=== PATIENT | female | born 1965 | race Caucasian/White ===

== ENCOUNTER 2020-02-28 19:05 | Inpatient (IN) ==
[2020-02-28] MEDS ORDERED: DIPHTHERIA/TETANUS ADULT VACCINE 0.5 ML SYRINGE IM ONE (19:28)
[2020-02-28] MEDS ORDERED: LACTATED RINGERS 1,000 ML IV STA (19:28)
[2020-02-28] MEDS ORDERED: fentaNYL 100 MCG/2 ML VIAL IV STA (19:28)
[2020-02-28] MEDS ORDERED: ONDANSETRON 4 MG/2 ML VIAL IV STA (19:28)
[2020-02-28 20:19] LABS: Basophils % 0.4 % (0.0-0.8); Eosinophils # 0.3 10*3/uL (0.0-0.87); Eosinophils % 3.7 % (0.00-10.9); Immature Granulocytes % 0.6 %; Immature Granulocytes Absolute 0.04 #; Lymphocytes # 1.9 10*3/uL (1.4-4.0); Lymphocytes % 27.6 % (21.3-54.2); Mean Corpuscular HGB Conc 31.6 GM/DL (32-36); Mean Corpuscular Volume 92.9 FL (87-102); Mean Platelet Volume 10.3 FL (9.6-12.0); Monocytes % 6.9 % (1.7-12.7); Neutrophils % 60.8 % (38.7-73.9); Platelet Count 233 T/CUMM (130-400); Red Blood Count 4.09 MC/CUMM (3.8-5.5); Red Cell Distribution Width 13.2 % (9.3-17.3)
[2020-02-28 20:44] LABS: PT Patient Result 10.4 SECS (9.8-11.9); Partial Thromboplastin Time 26.5 SECS (23.9-33.8)
[2020-02-28 20:51] LABS: Alanine Aminotransferase 21 U/L (13-56); Albumin 3.8 G/DL (3.4-5.0); Alkaline Phosphatase 91 U/L (45-117); Amylase 69 U/L (25-115); Aspartate Amino Transferase 29 U/L (0-37); Bilirubin,Total < 0.39 MG/DL (0.2-1.0); Blood Urea Nitrogen 17 MG/DL (7-18); Calcium 9.2 MG/DL (8.5-10.1); Estimated Glom Filtration Rate 54 ML/MIN; Glucose 88 MG/DL (74-106); Osmolality,Calculated 273.8 MOS/KG (273-304); Total Protein 7.3 G/DL (6.4-8.3)
[2020-02-28 21:00] LABS: Bilirubin,Urine Negative (Negative); Blood, Urine Negative (Negative); Glucose,Urine (UA) Negative (Negative); Ketones,Urine Negative (Negative); Nitrite,Urine Negative (Negative); Protein,Urine Negative; RBC,Urine 1 /HPF (0-4); Squamous Epithelial Cell,Urine Occasional /HPF (0-10); Urine Appearance CLEAR (Clear); Urine Color Straw (Yellow); Urine Specific Gravity 1.019 (1.001-1.035); Urine Urobilinogen < 2.0 EU/DL (0.2-1.0); WBC,Urine 3 /HPF (0-6)
[2020-02-28] MEDS ORDERED: SODIUM BICARBONATE 50 MEQ/50 ML VIAL IV STA (21:21)
[2020-02-28] MEDS ORDERED: DEXTROSE 50% 25 GM/50 ML VIAL IV STA (21:21)
[2020-02-28] MEDS ORDERED: CALCIUM GLUCONATE 2,000 MG in SODIUM CHLORIDE 0.9% 100 ML IV ONE (21:21)
[2020-02-28] MEDS ORDERED: INSULIN REGULAR 100 UNIT/ML IV STA (21:21)
[2020-02-28] MEDS ORDERED: DEXTROSE 50% 25 GM/50 ML SYRINGE IV STA (21:26)
[2020-02-28] MEDS ORDERED: CLINDAMYCIN INJ 900 MG in PREMIX 1 EACH IV ONE (21:29)
[2020-02-28 21:53] LABS: Barbiturates Screen,Urine Negative (Negative); Benzodiazepines Screen,Urine Positive (Negative); Cannabinoid Screen,Urine Negative (Negative); Opiate Screen,Urine Negative (Negative); Phencyclidine Screen,Urine Negative (Negative)
[2020-02-28] MEDS ORDERED: TISSUE ADHESIVE 1 EACH APPLICATOR TOP ONE (22:15)
[2020-02-28] MEDS ORDERED: SUGAMMADEX 200 MG/2 ML VIAL IV ONE (23:50)
[2020-02-29] MEDS ORDERED: ONDANSETRON 4 MG/2 ML VIAL IV PRN ×2 (00:35→01:56)
[2020-02-29] MEDS ORDERED: DESFLURANE 1 UNIT/15 MINUTE INH ONE (00:36)
[2020-02-29] MEDS ORDERED: propofoL 200 MG/20 ML VIAL IV ONE (00:36)
[2020-02-29] MEDS ORDERED: LIDOCAINE 2% 5 ML VIAL ONE (00:36)
[2020-02-29] MEDS ORDERED: LACTATED RINGERS 1,000 ML IV ONE (00:37)
[2020-02-29] MEDS ORDERED: ONDANSETRON 4 MG/2 ML VIAL ONE ×2 (00:37→00:38)
[2020-02-29] MEDS ORDERED: MIDAZOLAM 2 MG/2 ML VIAL ONE (00:37)
[2020-02-29] MEDS ORDERED: KETAMINE 500 MG/10 ML VIAL ONE (00:37)
[2020-02-29] MEDS ORDERED: fentaNYL 100 MCG/2 ML VIAL ONE ×2 (00:37)
[2020-02-29] MEDS ORDERED: ROCURONIUM 100 MG/10 ML VIAL IV ONE (00:37)
[2020-02-29] MEDS ORDERED: HYDROmorphone 2 MG/1 ML VIAL ONE (00:37)
[2020-02-29] MEDS: HYDROmorphone 2 MG/1 ML VIAL IV PRN ×11 (00:40→20:34)
[2020-02-29 01:14] LABS: Calcium 9.8 MG/DL (8.5-10.1); Osmolality,Calculated 280.7 MOS/KG (273-304)
[2020-02-29] MEDS ORDERED: KETOROLAC 15 MG/1 ML VIAL IV PRN (01:56)
[2020-02-29] MEDS ORDERED: LACTATED RINGERS 1,000 ML IV SCH (01:56)
[2020-02-29] MEDS ORDERED: PROMETHAZINE 25 MG/1 ML VIAL IM PRN (01:56)
[2020-02-29 06:48] LABS: Basophils % 0.4 % (0.0-0.8); Eosinophils % 0.3 % (0.00-10.9); Hematocrit 39.3 VOL% (35.7-47.0); Hemoglobin 12.4 GM/DL (12.0-16.0); Immature Granulocytes % 0.4 %; Immature Granulocytes Absolute 0.04 #; Lymphocytes # 1.4 10*3/uL (1.4-4.0); Lymphocytes % 14.4 % (21.3-54.2); Mean Corpuscular HGB Conc 31.6 GM/DL (32-36); Mean Corpuscular Volume 93.8 FL (87-102); Mean Platelet Volume 10.5 FL (9.6-12.0); Monocytes % 8.3 % (1.7-12.7); Neutrophils % 76.2 % (38.7-73.9); Platelet Count 282 T/CUMM (130-400); Red Blood Count 4.19 MC/CUMM (3.8-5.5); Red Cell Distribution Width 13.3 % (9.3-17.3); White Blood Count 9.8 T/CUMM (4-12)
[2020-02-29 07:31] LABS: Calcium 9.3 MG/DL (8.5-10.1); Osmolality,Calculated 274.8 MOS/KG (273-304)
[2020-02-29] MEDS ORDERED: PNEUMOCOCCAL VACCINE (13 VALENT) 0.5 ML SYRINGE IM ONE (07:58)
[2020-02-29] MEDS ORDERED: INFLUENZA VIRUS VACCINE 0.5 ML SYRINGE IM ONE (08:14)
[2020-02-29] MEDS ORDERED: LURASIDONE 60 MG TABLET PO SCH (09:00)
[2020-02-29] MEDS: KETOROLAC 15 MG/1 ML VIAL IV SCH ×3 (09:14→20:33)
[2020-02-29] MEDS: BENZTROPINE 0.5 MG TABLET PO SCH (09:17)
[2020-02-29] MEDS: GABAPENTIN 400 MG CAPSULE PO SCH ×4 (09:26→20:33)
[2020-02-29] MEDS: QUEtiapine 100 MG TABLET PO SCH ×2 (09:26→20:32)
[2020-02-29] MEDS: TEMAZEPAM 15 MG CAPSULE PO SCH (20:32)
[2020-02-29] MEDS: ENOXAPARIN 40 MG/0.4 ML SYRINGE SUBCUT SCH (20:35)
[2020-03-01] MEDS: KETOROLAC 15 MG/1 ML VIAL IV SCH ×4 (02:12→22:20)
[2020-03-01 04:24] LABS: Basophils % 0.4 % (0.0-0.8); Eosinophils # 0.3 10*3/uL (0.0-0.87); Eosinophils % 3.4 % (0.00-10.9); Hematocrit 33.4 VOL% (35.7-47.0); Hemoglobin 10.6 GM/DL (12.0-16.0); Immature Granulocytes % 0.3 %; Immature Granulocytes Absolute 0.02 #; Lymphocytes % 27.2 % (21.3-54.2); Mean Corpuscular HGB Conc 31.7 GM/DL (32-36); Mean Corpuscular Volume 91.3 FL (87-102); Mean Platelet Volume 10.4 FL (9.6-12.0); Monocytes % 11.9 % (1.7-12.7); Neutrophils % 56.8 % (38.7-73.9); Platelet Count 181 T/CUMM (130-400); Red Blood Count 3.66 MC/CUMM (3.8-5.5); Red Cell Distribution Width 13.4 % (9.3-17.3); White Blood Count 7.3 T/CUMM (4-12)
[2020-03-01] MEDS: HYDROmorphone 2 MG/1 ML VIAL IV PRN ×4 (04:24→20:39)
[2020-03-01 04:43] LABS: Calcium 8.4 MG/DL (8.5-10.1)
[2020-03-01] MEDS: QUEtiapine 100 MG TABLET PO SCH ×2 (09:55→20:40)
[2020-03-01] MEDS: BENZTROPINE 0.5 MG TABLET PO SCH (09:55)
[2020-03-01] MEDS: GABAPENTIN 400 MG CAPSULE PO SCH ×3 (09:55→22:20)
[2020-03-01] MEDS: ENOXAPARIN 40 MG/0.4 ML SYRINGE SUBCUT SCH (20:40)
[2020-03-01] MEDS: TEMAZEPAM 15 MG CAPSULE PO SCH (20:40)
[2020-03-02] MEDS: KETOROLAC 15 MG/1 ML VIAL IV SCH ×2 (01:28→08:23)
[2020-03-02] MEDS: HYDROmorphone 2 MG/1 ML VIAL IV PRN (06:41)
[2020-03-02 08:13] VITALS: BP 100/64
[2020-03-02 08:13] LABS: Calcium 8.8 MG/DL (8.5-10.1); Osmolality,Calculated 269.4 MOS/KG (273-304)
[2020-03-02] MEDS: GABAPENTIN 400 MG CAPSULE PO SCH (08:23)
[2020-03-02] MEDS: BENZTROPINE 0.5 MG TABLET PO SCH (08:23)
[2020-03-02] MEDS: QUEtiapine 100 MG TABLET PO SCH (08:24)
[2020-03-02] MEDS ORDERED: INFLUENZA VIRUS VACCINE 0.5 ML SYRINGE IM ONE (10:30)
== END 2020-03-02 10:44 | disposition home or self-care (01) | DRG 220 ==
LOC: N.ED 19:05 → N.EDINP 21:50 → N.3E 02-29 01:35
PROVIDERS: ADMIT Surgery; ATTEND Surgery

== ENCOUNTER 2020-03-18 22:37 | Observation (INO) ==
[2020-03-18] MEDS ORDERED: NALOXONE 0.4 MG/ML VIAL ONE (22:54)
[2020-03-18 23:06] LABS: Basophils # 0.1 10*3/uL (0.0-0.2); Eosinophils # 0.6 10*3/uL (0.0-0.87); Eosinophils % 8.5 % (0.00-10.9); Hematocrit 32.6 VOL% (35.7-47.0); Hemoglobin 10.5 GM/DL (12.0-16.0); Immature Granulocytes % 0.3 %; Immature Granulocytes Absolute 0.02 #; Lymphocytes # 2.5 10*3/uL (1.4-4.0); Lymphocytes % 37.4 % (21.3-54.2); Mean Corpuscular HGB Conc 32.2 GM/DL (32-36); Mean Corpuscular Volume 90.8 FL (87-102); Mean Platelet Volume 9.9 FL (9.6-12.0); Monocytes % 6.6 % (1.7-12.7); Neutrophils % 46.2 % (38.7-73.9); Platelet Count 383 T/CUMM (130-400); Red Blood Count 3.59 MC/CUMM (3.8-5.5); Red Cell Distribution Width 13.7 % (9.3-17.3); White Blood Count 6.7 T/CUMM (4-12)
[2020-03-18 23:19] LABS: Acetaminophen < 2.0 UG/ML (10-30); Salicylate < 2.8 MG/DL (2.8-20)
[2020-03-18] MEDS ORDERED: NALOXONE 0.4 MG/ML VIAL IV STA (23:29)
[2020-03-18 23:32] LABS: Bilirubin,Urine Negative (Negative); Blood, Urine Negative (Negative); Glucose,Urine (UA) Negative (Negative); Ketones,Urine Negative (Negative); Mucus,Urine Occasional /LPF (Occasional); Nitrite,Urine Negative (Negative); Protein,Urine Negative; RBC,Urine <1 /HPF (0-4); Squamous Epithelial Cell,Urine Occasional /HPF (0-10); Urine Appearance CLEAR (Clear); Urine Color Yellow (Yellow); Urine Urobilinogen < 2.0 EU/DL (0.2-1.0); WBC,Urine <1 /HPF (0-6)
[2020-03-18 23:35] LABS: Alanine Aminotransferase 10 U/L (13-56); Albumin 3.4 G/DL (3.4-5.0); Alkaline Phosphatase 122 U/L (45-117); Aspartate Amino Transferase 13 U/L (0-37); Bilirubin,Total < 0.39 MG/DL (0.2-1.0); Calcium 8.6 MG/DL (8.5-10.1); Total Protein 6.8 G/DL (6.4-8.3)
[2020-03-18 23:36] LABS: Blood Urea Nitrogen 25 MG/DL (7-18); Estimated Glom Filtration Rate 185 ML/MIN; Glucose 225 MG/DL (74-106); Osmolality,Calculated 289.4 MOS/KG (273-304)
[2020-03-18 23:42] LABS: Barbiturates Screen,Urine Negative (Negative); Benzodiazepines Screen,Urine Positive (Negative); Cannabinoid Screen,Urine Negative (Negative); Opiate Screen,Urine Negative (Negative); Phencyclidine Screen,Urine Negative (Negative)
[2020-03-19] MEDS ORDERED: DIAZEPAM 10 MG/2 ML SYRINGE IM STA (00:04)
[2020-03-19 00:33] LABS: ABG Base Excess 1.8 MMOL/L (-2.5-2.5); ABG Oxygen Saturation 97.7 % (95-100); ABG PCO2 50.5 MM HG (35-48); ABG PH 7.352 (7.35-7.45); ABG TCO2 25.5 MMOL/L (23-27); Allen Test Positive; Pt O2 Delivery Device Room Air
[2020-03-19] MEDS ORDERED: GLUCAGON 1 MG VIAL IM PRN (02:07)
[2020-03-19] MEDS ORDERED: DEXTROSE 50% 25 GM/50 ML VIAL IV PRN (02:07)
[2020-03-19] MEDS ORDERED: ONDANSETRON 4 MG/2 ML VIAL IV PRN (02:07)
[2020-03-19] MEDS: SODIUM CHLORIDE 0.9% 1,000 ML IV SCH ×2 (03:25→22:51)
[2020-03-19] MEDS ORDERED: INFLUENZA VIRUS VACCINE 0.5 ML SYRINGE IM ONE (09:00)
[2020-03-20 01:24] LABS: Barbiturates Screen,Urine Negative (Negative); Benzodiazepines Screen,Urine Positive (Negative); Cannabinoid Screen,Urine Negative (Negative); Opiate Screen,Urine Negative (Negative); Phencyclidine Screen,Urine Negative (Negative)
[2020-03-20] MEDS: SODIUM CHLORIDE 0.9% 1,000 ML IV SCH ×3 (04:17→20:57)
[2020-03-20 06:23] LABS: Basophils # 0.1 10*3/uL (0.0-0.2); Basophils % 1.5 % (0.0-0.8); Eosinophils # 0.6 10*3/uL (0.0-0.87); Eosinophils % 9.3 % (0.00-10.9); Hematocrit 36.1 VOL% (35.7-47.0); Hemoglobin 11.7 GM/DL (12.0-16.0); Immature Granulocytes % 0.3 %; Immature Granulocytes Absolute 0.02 #; Lymphocytes # 2.1 10*3/uL (1.4-4.0); Lymphocytes % 31.1 % (21.3-54.2); Mean Corpuscular HGB Conc 32.4 GM/DL (32-36); Mean Corpuscular Volume 91.2 FL (87-102); Mean Platelet Volume 10.2 FL (9.6-12.0); Monocytes % 8.6 % (1.7-12.7); Neutrophils % 49.2 % (38.7-73.9); Platelet Count 399 T/CUMM (130-400); Red Blood Count 3.96 MC/CUMM (3.8-5.5); White Blood Count 6.8 T/CUMM (4-12)
[2020-03-20 06:43] LABS: Eosinophils 7 % (0-10); Hypochromasia Slight; Lymphocytes 33 % (20-55); Segmented Neutrophils 54 % (50-85); Total Cells Counted 100
[2020-03-20 06:44] LABS: Atypical Lymphocytes Few; Microcytosis Slight; Platelet Estimate Normal
[2020-03-20 07:00] LABS: Alanine Aminotransferase 10 U/L (13-56); Albumin 3.5 G/DL (3.4-5.0); Alkaline Phosphatase 128 U/L (45-117); Aspartate Amino Transferase 16 U/L (0-37); Bilirubin,Total < 0.39 MG/DL (0.2-1.0); Blood Urea Nitrogen 12 MG/DL (7-18); Calcium 9.3 MG/DL (8.5-10.1); Estimated Glom Filtration Rate 76 ML/MIN; Glucose 111 MG/DL (74-106); Osmolality,Calculated 273.8 MOS/KG (273-304); Total Protein 7.6 G/DL (6.4-8.3)
[2020-03-20] MEDS ORDERED: LURASIDONE 60 MG TABLET PO SCH (09:00)
[2020-03-20] MEDS: GABAPENTIN 100 MG CAPSULE PO SCH ×4 (09:21→20:57)
[2020-03-20] MEDS: QUEtiapine 100 MG TABLET PO SCH ×2 (09:22→20:57)
[2020-03-20] MEDS: BENZTROPINE 1 MG TABLET PO SCH (09:23)
[2020-03-20] MEDS: LURASIDONE 40 MG TABLET PO SCH (09:24)
[2020-03-20] MEDS ORDERED: amLODIPine 5 MG TABLET PO ONE (12:18)
[2020-03-21] MEDS: SODIUM CHLORIDE 0.9% 1,000 ML IV SCH ×2 (06:18→11:39)
[2020-03-21] MEDS: BENZTROPINE 1 MG TABLET PO SCH (08:50)
[2020-03-21] MEDS: GABAPENTIN 100 MG CAPSULE PO SCH ×3 (08:50→18:08)
[2020-03-21] MEDS: LURASIDONE 40 MG TABLET PO SCH (08:50)
[2020-03-21] MEDS: QUEtiapine 100 MG TABLET PO SCH (08:50)
[2020-03-21] MEDS ORDERED: amLODIPine 5 MG TABLET PO SCH (09:00)
[2020-03-21 17:31] VITALS: BP 150/98
== END 2020-03-21 18:58 ==
LOC: N.EDINP 22:37 → N.ED 22:37 → SUATTDRO 03-19 02:07 → N.3E 03-19 02:41
PROVIDERS: ADMIT Internal Medicine; ATTEND Internal Medicine Critical Care Medicine